=== PATIENT | female | born 1980 | race African-American/Black ===

== ENCOUNTER → 2017-04-28 | Outpatient (CLI) | payer OTHER ==
[2015-01-23 11:09] VITALS: BP 129/78
--- NOTE | 2017-04-28 12:55 | MRI ---
HISTORY: Disc herniation. Study: MRI lumbar spine without contrast. Comparison: MRI lumbar spine dated November 28, 2014. Technique: Multiplanar multi-sequence MRI of the lumbar spine was obtained. Sagittal T1, sagittal T 2, and stir weighted images, axial T1, and axial T2 images were obtained. Findings: Anatomic alignment without fracture or listhesis. Disc desiccation L5-S1 with mild/moderate disk hei ght loss. Associated type 2 Modic endplate changes. Remaining bone marrow signal appears normal. The conus medullaris terminates at L1. 2.5 cm multi-septated left ovarian cystic lesion. Otherwise, the visualized soft tissues appear normal. L1 -- L2: No significant disc bulge, neural foraminal narrowing, or spinal canal stenosis. L2 -- L3: No significant disc bulge, neural foraminal narrowing, or spinal canal stenosis. L3 -- L4: Broad-based disk bulge without significant neural foraminal narrowing or spinal canal sten osis. L4 -- L5: Broad-based disc bulge without significant neural foraminal narrowing or spinal canal sten osis. L5 -- S1: Broad-based disc bulge with a large left paracentral disc protrusion causing moderate to s evere left and mild right neural foraminal narrowing. There is contact and displacement of the left descending S1 nerve root. The nerve root otherwise demonstrates normal signal characteristics. Spina l canal stenosis to 8 mm. IMPRESSION: 1. Broad-based disc bulge at L5-S1 with large left paracentral disk protrusion causing moderate to s evere left and mild right neural foraminal narrowing. Spinal canal stenosis to 8 mm. This appears un changed given technique. 2. Indeterminate 2.5 cm left ovarian cystic lesion as above. Recommend pelvic ultrasound for further characterization. Reported By:
== END ==
LOC: RAD 10:28
PROVIDERS: ATTEND Nurse Practitioner Family
DX: M51.26 Other intervertebral disc displacement, lumbar region (principal)
CPT/HCPCS: 72148

== ENCOUNTER → 2017-05-17 | Outpatient (CLI) | payer SELFPAY ==
[2015-01-23 11:09] VITALS: BP 129/78
[2017-05-17 11:53] LABS: BASOPHILS % (AUTO) 0.5 % (0.2-1.0); EOSINOPHILS # (AUTO) 0.2 x10^3/uL (0.0-0.2); EOSINOPHILS % (AUTO) 2.5 % (0.9-2.9); HEMATOCRIT 34.1 % (36.0-47.0); LYMPHOCYTES # (AUTO) 2.5 X10^3/uL (1.3-2.9); LYMPHOCYTES % (AUTO) 29.1 % (21.0-51.0); MEAN CORPUSCULAR HEMOGLOBIN 25.8 pg (27.0-34.0); MEAN CORPUSCULAR HGB CONC 32.1 g/dL (33.0-35.0); MEAN CORPUSCULAR VOLUME 80.4 fL (80.0-100.0); MEAN PLATELET VOLUME 8.4 fL (7.4-11.0); MONOCYTES # (AUTO) 0.8 x10^3/uL (0.3-0.8); MONOCYTES % (AUTO) 8.8 % (0.0-13.0); NEUTROPHILS # (AUTO) 5.1 x10^3/uL (2.2-4.8); NEUTROPHILS % (AUTO) 59.1 % (42.0-75.0); PLATELET COUNT 312 X10^3/uL (150.0-450.0); RED BLOOD COUNT 4.25 X10^6/uL (3.5-5.4); RED CELL DISTRIBUTION WIDTH 15.8 % (11.6-16.5); WHITE BLOOD COUNT 8.7 X10^3/uL (3.6-10.0)
[2017-05-17 12:15] LABS: HEMOGLOBIN A1C 10.6 % (4.5-6.2); MICROALBUMIN,URINE 37.9 mg/L
[2017-05-17 12:16] LABS: HYPOCHROMASIA SLIGHT; PLATELET MORPHOLOGY COMMENT NORMAL (NORMAL)
[2017-05-17 12:21] LABS: ALANINE AMINOTRANSFERASE 21 Units/L (12-78); ALBUMIN 3.5 g/dL (3.4-5.0); ALKALINE PHOSPHATASE 75 Units/L (46-116); ASPARTATE AMINO TRANSFERASE 13 Units/L (15-37); BLOOD UREA NITROGEN 9 mg/dL (7-18); CALCIUM 8.7 mg/dL (8.5-10.1); CARBON DIOXIDE 25.9 mmol/L (21-32); CHLORIDE 102 mmol/L (98-107); CHOL/HDL RATIO 2.1 (0.0-5.0); CHOLESTEROL 131 mg/dL (0-200); COR NA(FOR HYPERGLY) 141 mmol/L (136-145); CREATININE 0.97 mg/dL (0.55-1.02); CREATININE,URINE 547.98 mg/dL (29-226); FREE T4 (FREE THYROXINE) 1.09 ng/dL (0.76-1.46); GLUCOSE 254 mg/dL (65-99); HDL CHOLESTEROL 62 mg/dL (40-60); SODIUM 137 mmol/L (136-145); TOTAL PROTEIN 8.1 g/dL (6.4-8.2); TRIGLYCERIDES 64 mg/dL (0-150); eGFR BLACK RACES > 60 (>60); eGFR NON BLACK RACES > 60 (>60)
--- NOTE | 2017-05-17 12:30 | RAD ---
HISTORY: Right knee pain. Study: Three-view right knee. Comparison: None. Findings: There is no destructive bony lesion. There is no evidence for acute cortical disruption or dislocati on. The medial and lateral tibiofemoral compartments appear unremarkable without loss of significan t joint space. The lateral radiograph fails to demonstrate significant joint effusion. The patello femoral compartment is normal in its appearance. The surrounding soft tissues are within normal limi ts. IMPRESSION: Negative exam of the right knee. Reported By:
--- NOTE | 2017-05-17 12:31 | RAD ---
HISTORY: Left knee pain. Study: AP and lateral views of the left knee. Comparison: None. Findings: There is no destructive bony lesion. There is no evidence for acute cortical disruption or dislocati on. The medial and lateral tibiofemoral compartments appear unremarkable without loss of significan t joint space. The lateral radiograph fails to demonstrate significant joint effusion. The patello femoral compartment is normal in its appearance. The surrounding soft tissues are within normal limi ts. IMPRESSION: Negative exam of the left knee. Reported By:
--- NOTE | 2017-05-17 12:32 | RAD ---
HISTORY: Lower abdominal pain Study: Acute abdominal series Comparison: None Findings: The trachea is midline. The cardiac silhouette is unremarkable. The lungs are clear without focal infiltrate or effusion. The bony thorax is unremarkable. The bowel gas pattern is nonobstructive. No pathological soft tissue mass or calcification can be ob served. The bony structures are grossly intact. IMPRESSION: 1. No acute cardiopulmonary disease. 2. No evidence for acute abdominal pathology identified. Reported By:
[2017-05-17 13:06] LABS: ERYTHROCYTE SEDIMENTATION RATE 36 MM/HOUR (0-20)
== END ==
LOC: LAB 11:08
PROVIDERS: ATTEND Nurse Practitioner Family
DX: I10 Essential (primary) hypertension (principal); E11.9 Type 2 diabetes mellitus without complications; E56.8 Deficiency of other vitamins; M25.561 Pain in right knee; M25.562 Pain in left knee; R53.83 Other fatigue; R10.84 Generalized abdominal pain
CPT/HCPCS: 36415; 73560; 74022; 80053; 80061; 82043; 82306; 83036; 84439; 84443; 84481; 85025; 85652; 86140

== ENCOUNTER → 2017-09-22 | Outpatient (CLI) | payer OTHER ==
[2015-01-23 11:09] VITALS: BP 129/78
[2017-09-22 16:20] LABS: HEMOGLOBIN A1C 11.6 % (4.5-6.2)
[2017-09-22 16:34] LABS: BLOOD UREA NITROGEN 12 mg/dL (7-18); CALCIUM 9.7 mg/dL (8.5-10.1); CARBON DIOXIDE 26.8 mmol/L (21-32); CHLORIDE 101 mmol/L (98-107); COR NA(FOR HYPERGLY) 141 mmol/L (136-145); SODIUM 136 mmol/L (136-145); TSH (3RD GENERATION) 0.699 uIU/mL (0.358-3.74); eGFR BLACK RACES > 60 (>60); eGFR NON BLACK RACES > 60 (>60)
== END ==
LOC: LAB 15:48
PROVIDERS: ATTEND Nurse Practitioner Family
DX: E03.8 Other specified hypothyroidism (principal); E11.9 Type 2 diabetes mellitus without complications
CPT/HCPCS: 36415; 80048; 83036; 84443

== ENCOUNTER → 2017-09-29 | Outpatient (CLI) | payer OTHER ==
[2015-01-23 11:09] VITALS: BP 129/78
--- NOTE | 2017-10-04 12:15 | US ---
HISTORY: Abdominal pain, nausea Study: Abdominal ultrasound, complete Comparison: None Technique: Multiple grayscale sonographic images were obtained. Findings: The liver is normal in size and configuration and without cyst, mass, or biliary ductal dilatation. T he spleen is normal. The head and body of the pancreas appear normal. The tail is obscured by overlyi ng bowel gas. Cholelithiasis is present. Gallbladder wall thickness was normal. The common duct measu red 4.1 mm. The abdominal aorta and inferior vena cava were obscured by overlying bowel gas. The righ t kidney measured 9.6 x 5.9 x 6.4 cm. Left kidney measured 10.6 x 7.1 x 9 cm. No solid masses, hydron ephrosis, stones, or perinephric fluid collections were identified. IMPRESSION: Cholelithiasis without evidence for cholecystitis Reported By:
== END ==
LOC: RAD 08:47
PROVIDERS: ATTEND Nurse Practitioner Family
DX: R10.83 Colic (principal); K80.80 Other cholelithiasis without obstruction
CPT/HCPCS: 76700

== ENCOUNTER → 2017-10-04 | Outpatient (CLI) | payer OTHER ==
[2015-01-23 11:09] VITALS: BP 129/78
--- NOTE | 2017-10-04 18:02 | RAD ---
Examination: Right knee, two views History: Pain no trauma Findings: AP and lateral views demonstrate no evidence for trauma, arthropathy, bone destruction or s oft tissue disease. Impression: Within normal limits. The Reported By:
--- NOTE | 2017-10-04 18:02 | RAD ---
Examination: Left hand, three views History: Bilateral pain no trauma Findings: Normal mineralization. No evidence for fracture, bone destruction or joint deformity. There is slight narrowing of the radiocarpal joint. No soft tissue calcification is seen. Impression: No acute abnormality demonstrated. Reported By:
--- NOTE | 2017-10-04 18:03 | RAD ---
Examination: Right hand, three views History: Pain, no trauma Findings: Bone density is normal. There is no evidence for recent injury, bone destruction, arthropat hy or soft tissue calcification. Impression: No significant abnormality demonstrated. Reported By:
--- NOTE | 2017-10-04 18:04 | RAD ---
Examination: Right wrist, three views History: Pain no trauma Findings: There is slight narrowing of the radiocarpal joint. No demineralization, fracture or soft t issue calcification is seen. Impression: No acute or significant pathology demonstrated. Reported By:
--- NOTE | 2017-10-04 18:05 | RAD ---
Examination: Left wrist, three views History: Pain, no trauma Findings: There is no evidence for trauma, bone destruction, soft tissue calcification or articular d eformity. Joint spaces are smooth and well defined. Impression: No significant abnormality demonstrated. Reported By:
== END ==
LOC: RAD 17:18
PROVIDERS: ATTEND Nurse Practitioner Family
DX: M25.561 Pain in right knee (principal); M25.531 Pain in right wrist; M25.532 Pain in left wrist
CPT/HCPCS: 73100; 73130; 73560

== ENCOUNTER → 2017-10-27 | Day surgery (SDC) | payer OTHER ==
[~2017-10-27] MED LIST: ANCEF VIAL 1 GM ONE; BENADRYL INJ 50 MG VIAL IVP PRN; D5 LR 1000 ML 1,000 ML IV ONE; DILAUDID INJ ONE; DIPRIVAN VIAL ONE; FENTANYL INJ 250 mcg ONE; MARCAINE 0.25% INJ ONE; NEOSTIGMINE INJ ONE; NORCURON INJ 10 MG VIAL ONE; NS 100 ML IV 100 ML IV ONE; NS 1000 ML 1,000 ML ONE; PERCOCET TAB 5/325 MG PO PRN; PHENERGAN INJ 25 MG IVP PRN; QUELICIN (OR ANECTINE) ONE; REGLAN INJ 10 MG VIAL IVP PRN; ROBINUL ONE; SUPRANE IN ONE; TORADOL 30 MG VIAL ONE; VERSED ONE; XYLOCAINE 1% and EPINEPHRINE 1:100,000 ONE; XYLOCAINE 2 % (PLAIN) ONE; ZOFRAN INJ 4 MG VIAL IVP PRN; ZOFRAN INJ 4 MG VIAL ONE
[2017-10-27 08:23] LABS: BASOPHILS # (AUTO) 0.1 X10^3/uL (0.0-0.1); BASOPHILS % (AUTO) 0.8 % (0.2-1.0); EOSINOPHILS # (AUTO) 0.2 x10^3/uL (0.0-0.2); EOSINOPHILS % (AUTO) 2.1 % (0.9-2.9); HEMATOCRIT 33.9 % (36.0-47.0); LYMPHOCYTES # (AUTO) 1.8 X10^3/uL (1.3-2.9); LYMPHOCYTES % (AUTO) 20.3 % (21.0-51.0); MEAN CORPUSCULAR HEMOGLOBIN 25.8 pg (27.0-34.0); MEAN CORPUSCULAR HGB CONC 32.4 g/dL (33.0-35.0); MEAN CORPUSCULAR VOLUME 79.8 fL (80.0-100.0); MEAN PLATELET VOLUME 8.2 fL (7.4-11.0); MONOCYTES # (AUTO) 0.7 x10^3/uL (0.3-0.8); MONOCYTES % (AUTO) 7.9 % (0.0-13.0); NEUTROPHILS # (AUTO) 6.2 x10^3/uL (2.2-4.8); NEUTROPHILS % (AUTO) 68.9 % (42.0-75.0); PLATELET COUNT 320 X10^3/uL (150.0-450.0); RED BLOOD COUNT 4.25 X10^6/uL (3.5-5.4); RED CELL DISTRIBUTION WIDTH 16.4 % (11.6-16.5); WHITE BLOOD COUNT 8.9 X10^3/uL (3.6-10.0)
[2017-10-27 08:25] LABS: PLATELET MORPHOLOGY COMMENT NORMAL (NORMAL)
[2017-10-27 08:48] LABS: ALANINE AMINOTRANSFERASE 17 Units/L (12-78); ALBUMIN 3.3 g/dL (3.4-5.0); ALKALINE PHOSPHATASE 93 Units/L (46-116); ASPARTATE AMINO TRANSFERASE 12 Units/L (15-37); BLOOD UREA NITROGEN 9 mg/dL (7-18); CALCIUM 8.5 mg/dL (8.5-10.1); CHLORIDE 102 mmol/L (98-107); COR CA(FOR HYPOALB) 9.1 mg/dL (8.5-10.1); COR NA(FOR HYPERGLY) 140 mmol/L (136-145); CREATININE 0.93 mg/dL (0.55-1.02); SODIUM 137 mmol/L (136-145); TOTAL PROTEIN 7.9 g/dL (6.4-8.2); eGFR BLACK RACES > 60 (>60); eGFR NON BLACK RACES > 60 (>60)
--- NOTE | 2017-10-27 10:03 | OR.GENERIC ---
Post-Op Note Generic - Post-Op Note Operative Report: Operative Report Date of Operation: October 27, 2017 Pre-Operative Diagnosis: 1. Symptomatic cholelithiasis. 2. Diabetes mellitus. Post-Operative Diagnosis: 1. Symptomatic cholelithiasis. 2. Diabetes mellitus. Procedure: Laparoscopic cholecystectomy. Surgeon: Cornelio Rodriguez MD. Insulation Worker Apprentice: Sherry Perez CRNA. Specimen: Gallbladder. Estimated blood loss: Minimal. Complications: None. Summary: The patient is a 36 year old female who presented with symptomatic cholelithiasis. The patient was offered cholecystectomy. The risk and benefits of the procedure including difficulty with anesthesia, bleeding, infection, conversion to open procedure, bile leak, hernia formation, DVT, as well as PE were discussed with the patient. The patient understood these risks and requested the procedure. On October 27, 2017, the patient was brought to the operative theatre. A time out was performed verifying the patient and procedure. The patient received Ancef for pre-operative antibiosis. After satisfactory induction of general endotracheal anesthesia, the abdomen was prepped with Chloraprep and draped in the usual sterile fashion. The skin and subcutaneous tissue inferior to the umbilicus was anesthetized using local anesthetic. The skin was incised sharply. A 12 mm trocar was placed though the incision and into the peritoneal cavity using the Optiview technique. Carbon dioxide was infiltrated through this trocar to obtain a pneumoperitoneum of 15 mm Hg. A camera was placed through this trocar and swept in all directions. No injury was seen from entering the peritoneal cavity. A site was selected in the subxiphoid location for our 2nd trocar. The skin and fascia was anesthetized using local anesthetic. The skin was incised sharply. A 5 mm trocar was placed into the peritoneal cavity under direct visualization. In a similar manner, two additional 5 mm trocars were placed. The first was placed in the mid- clavicular line approximately 2 fingerbreadths inferior to the left costal margin and a second in the anterior axillary line approximately 2 fingerbreadths inferior to the left costal margin. The patient was placed in reverse Trendelenburg and rotated to the patients left. The gallbladder was grasped at the fundus and elevated cephalad and slightly lateral. The peritoneum on the medial and lateral aspects of the infundibulum of the gallbladder was scored using hook electrocautery. Using blunt dissection, the cystic artery and duct were isolated. The critical view of safety was obtained. Both of these structures were divided between endoclips. The gallbladder was dissected free using hook electrocautery. The gallbladder was placed in an endobag and removed through the umbilical trocar site without difficulty. The trocar and camera were placed back inside the abdomen. Our clips were noted in good position. At this point, the 5 mm trocars were removed under direct visualization. No bleeding was seen. The umbilical trocar was then removed and pneumoperitoneum released. The fascia at the umbilicus was closed using a 0-Vicryl placed in a [id number] configuration. The skin edges at all incisions were re-approximated using inverted, interrupted 4-0 Monocryl sutures. Mastisol and Steri-strips were placed. Sterile dressings were placed. The patient was awakened and taken to the recovery room in stable condition. There were no complications. All counts were correct.
[2017-10-27] MEDS: DILAUDID INJ IVP PRN ×2 (10:22→10:27)
[2017-10-27 11:41] VITALS: BP 143/79
== END | disposition home or self-care (01) ==
LOC: SURG1 07:41
PROVIDERS: ATTEND Student in an Organized Health Care Education/Training Program
PROC: 0FT44ZZ Resection of Gallbladder, Percutaneous Endoscopic Approach (ICD-10-PCS; principal; 2017-10-27 08:30)
DX: K80.80 Other cholelithiasis without obstruction (principal); E11.9 Type 2 diabetes mellitus without complications
CPT/HCPCS: 36415; 80053; 85025; A4216; A4222; S0020; J0330; J0690; J1170; J1885; J2001; J2250; J2405; J2710; J3010; J3490; J7120

== ENCOUNTER → 2017-12-14 | Outpatient (CLI) | payer OTHER ==
[2017-10-27 11:41] VITALS: BP 143/79
--- NOTE | 2017-12-14 13:14 | US ---
HISTORY: Sore throat Study: Ultrasound of the thyroid gland Comparison: 11/28/2014, 12/04/2015 Technique: Multiple almaguer scale images of the thyroid were obtained. Findings: The right lobe of the thyroid measures 4.9 x 2.1 x 2.6 cm. Multiple cystic and complex nodules are se en in the right lobe the largest cystic and solid nodule on the right measures 12 x 12 mm. The left l obe of the thyroid measures 4.9 x 2 x 2.5 cm. Multiple cystic and complex nodules are also seen in th e left lobe, the largest cystic and solid nodule measures 11 x 13 mm. The thyroid isthmus appears no rmal measuring 8 mm. IMPRESSION: 1. Stable multinodular goiter as described. Reported By:
== END ==
LOC: RAD 10:05
PROVIDERS: ATTEND Psychiatry & Neurology Neurology
DX: E04.2 Nontoxic multinodular goiter (principal)
CPT/HCPCS: 76536

== ENCOUNTER → 2018-01-05 | Outpatient (CLI) | payer OTHER ==
[2017-10-27 11:41] VITALS: BP 143/79
[2018-01-05 17:47] LABS: BLOOD UREA NITROGEN 11 mg/dL (7-18); CALCIUM 9.1 mg/dL (8.5-10.1); CHLORIDE 102 mmol/L (98-107); COR NA(FOR HYPERGLY) 141 mmol/L (136-145); CREATININE 0.92 mg/dL (0.55-1.02); SODIUM 137 mmol/L (136-145); T4 (THYROXINE) 7.3 ug/dL (4.7-13.3); TSH (3RD GENERATION) 1.117 uIU/mL (0.358-3.74); eGFR BLACK RACES > 60 (>60); eGFR NON BLACK RACES > 60 (>60)
[2018-01-05 17:53] LABS: HEMOGLOBIN A1C 10.5 %
== END ==
LOC: LAB 17:08
PROVIDERS: ATTEND Nurse Practitioner Family
DX: E11.65 Type 2 diabetes mellitus with hyperglycemia (principal); E04.1 Nontoxic single thyroid nodule
CPT/HCPCS: 36415; 80048; 83036; 84436; 84443